=== PATIENT | female | born 1965 | race African-American/Black ===

== ENCOUNTER 2017-01-03 12:17 | Emergency (ER) | payer MEDICAID ==
[~2017-01-03] VITALS: Ht 175.3 cm; Wt 48.0 kg
[2017-01-03 12:30] VITALS: BP 156/92
[2017-01-03 14:22] LABS: CLARITY URINE CLOUDY (CLEAR); COLOR URINE YELLOW (YELLOW); GLUCOSE URINE NEGATIVE (NEGATIVE); KETONES URINE NEGATIVE (NEGATIVE); LEUKOCYTE ESTERASE URINE 2+ (NEGATIVE); NITRITE URINE NEGATIVE (NEGATIVE); OCCULT BLOOD URINE NEGATIVE (NEGATIVE); PH URINE 5.5 (4.5-8.0); PROTEIN URINE NEGATIVE (NEGATIVE); SPECIFIC GRAVITY URINE 1.023 (1.005-1.030); UROBILINOGEN URINE 0.2 E.U./dL (0.2-1.0)
[2017-01-03 14:46] LABS: SQUAMOUS EPITHELIAL CELL URINE 2+ /lpf (RARE/1+)
[2017-01-03 14:47] LABS: BACTERIA URINE TRACE
[2017-01-03 14:49] LABS: RBC URINE 0-2 /hpf (0-2); TRICHOMONAS URINE FEW
[2017-01-03 14:50] LABS: MUCUS URINE TRACE /lpf (< = 2+)
== END 2017-01-03 14:50 | disposition home or self-care (01) ==
LOC: ER 12:17
DX: S39.012A Strain of muscle, fascia and tendon of lower back, initial encounter (principal); R30.0 Dysuria; R35.0 Frequency of micturition; A59.9 Trichomoniasis, unspecified; N30.90 Cystitis, unspecified without hematuria; I10 Essential (primary) hypertension; J45.909 Unspecified asthma, uncomplicated; F17.200 Nicotine dependence, unspecified, uncomplicated; F12.10 Cannabis abuse, uncomplicated; W18.39XA Other fall on same level, initial encounter; Y93.89 Activity, other specified; Y92.89 Other specified places as the place of occurrence of the external cause; Y99.8 Other external cause status; Z88.8 Allergy status to other drugs, medicaments and biological substances
CPT/HCPCS: 81001; 99283

== ENCOUNTER 2018-07-10 08:36 | Emergency (ER) | payer MEDICAID ==
[~2018-07-10] VITALS: Ht 167.6 cm; Wt 44.0 kg
[2018-07-10 08:38] VITALS: BP 117/77
[2018-07-10] MEDS ORDERED: SODIUM CHLORIDE 0.9% 1,000 ML IV ONE (10:41)
[2018-07-10] MEDS ORDERED: IBUPROFEN 600MG TABLET PO ONE (10:45)
[2018-07-10 11:43] LABS: CLARITY URINE CLEAR (CLEAR); COLOR URINE YELLOW (YELLOW); KETONES URINE TRACE (NEGATIVE); LEUKOCYTE ESTERASE URINE TRACE (NEGATIVE); NITRITE URINE NEGATIVE (NEGATIVE); OCCULT BLOOD URINE NEGATIVE (NEGATIVE); PH URINE 5.5 (4.5-8.0); PROTEIN URINE NEGATIVE (NEGATIVE); SPECIFIC GRAVITY URINE 1.022 (1.005-1.030); UROBILINOGEN URINE 0.2 E.U./dL (0.2-1.0)
[2018-07-10 12:28] LABS: BASOPHILS % 0.9 % (0.0-2.0); EOSINOPHILS % 0.4 % (0.0-5.0); HEMATOCRIT. 42.5 % (36.0-48.0); HEMOGLOBIN. 14.3 g/dL (12.0-16.0); LYMPHOCYTES % 42.4 % (20.0-50.0); MEAN CORPUSCULAR VOLUME 89.1 fL (81.0-99.0); MEAN PLATELET VOLUME 8.3 fl (7.4-10.4); MONOCYTES % 5.2 % (2.0-8.0); NEUTROPHILS % 51.1 % (40.0-76.0); PLATELET 214 x1000/uL (130-400); RED BLOOD CELL COUNT 4.77 mill/uL (4.2-5.4); RED CELL DISTRIBUTION WIDTH 14.3 % (11.6-14.6)
[2018-07-10 12:33] LABS: CHLORIDE 107 mEq/L (98-107)
[2018-07-10 12:35] LABS: PROTHROMBIN TIME 10.2 sec (9.1-11.1)
== END 2018-07-10 13:37 | disposition home or self-care (01) ==
LOC: ER 09:38
DX: J06.9 Acute upper respiratory infection, unspecified (principal); R11.10 Vomiting, unspecified; R19.7 Diarrhea, unspecified; J45.909 Unspecified asthma, uncomplicated; E11.9 Type 2 diabetes mellitus without complications; I10 Essential (primary) hypertension; F17.200 Nicotine dependence, unspecified, uncomplicated; Z90.710 Acquired absence of both cervix and uterus; Z88.1 Allergy status to other antibiotic agents
CPT/HCPCS: 36415; 74176; 80053; 81003; 82962; 83690; 85025; 85610; 99285; J7030

== ENCOUNTER 2018-10-19 05:19 | Inpatient (IN) | payer MEDICAID ==
[~2018-10-19] VITALS: Ht 154.9 cm; Wt 44.9 kg
[~2018-10-19 05:19] MED LIST: ALBU18HF2 IH; DIVA-18 PO; ERGO2000 PO; FLUT1DIS2 IH; GABA-531 PO; HYDR12.529 PO; IBUP-2030 PO; LORA10TA7 PO; PHEN300C6 PO; PIOG30TA27 PO; SERT-112 PO; TRAM50TA3 PO; TYLENOL CODEINE PO; ZIPR40CA2 PO
[2018-10-19] MEDS ORDERED: LACTATED RINGERS 1,000 ML IV SCH (05:30)
[2018-10-19] MEDS ORDERED: GELATIN SPONGE,ABSORBABLE 12-7MM SPONGE ONE (06:45)
[2018-10-19] MEDS ORDERED: BACITRACIN 50,000 UNITS/VIAL ONE (06:46)
[2018-10-19] MEDS ORDERED: THROMBIN (BOVINE) 5000 UNITS/VIAL TOP ONE (06:46)
[2018-10-19] MEDS ORDERED: LIDOCAINE HCL/EPINEPHRINE 1%-EPI 1:100,000 20 ML VIAL ONE (06:47)
[2018-10-19] MEDS ORDERED: DICL50TA9 PO (06:52)
[2018-10-19] MEDS ORDERED: FENTANYL CITRATE/PF 50MCG/ML 2ML VIAL ONE (07:05)
[2018-10-19] MEDS ORDERED: PROPOFOL 200MG/20ML VIAL IV ONE (07:05)
[2018-10-19] MEDS ORDERED: MIDAZOLAM HCL 2 MG/2 ML VIAL ONE (07:05)
[2018-10-19] MEDS ORDERED: ROCURONIUM BROMIDE 10MG/ML VIAL 5ML IV ONE (07:05)
[2018-10-19] MEDS ORDERED: ONDANSETRON HCL 4MG/2ML INJ IV PRN ×2 (07:15→08:45)
[2018-10-19] MEDS ORDERED: NICARDIPINE 100 MG in SODIUM CHLORIDE 0.9% 60 ML IV PRN (07:15)
[2018-10-19] MEDS ORDERED: ESMOLOL HCL 10MG/ML 10ML VIAL IV ONE (07:52)
[2018-10-19] MEDS ORDERED: SUCCINYLCHOLINE CHLORIDE 200MG/10ML IV ONE (07:52)
[2018-10-19] MEDS ORDERED: HYDRALAZINE 20MG/ML VIAL ONE (07:59)
[2018-10-19] MEDS ORDERED: GLYCOPYRROLATE 0.2 MG/ML 2ML VIAL ONE (08:33)
[2018-10-19] MEDS ORDERED: NEOSTIGMINE METHYLSULFATE 1MG/ML 10 ML VIAL ONE (08:33)
[2018-10-19] MEDS ORDERED: FENTANYL CITRATE/PF 50MCG/ML 2ML VIAL IV PRN (08:45)
[2018-10-19] MEDS ORDERED: MEPERIDINE HCL/PF 25MG/ML CPJ IV PRN (08:45)
[2018-10-19] MEDS ORDERED: MORPHINE SULFATE 4 MG/ML CPJ (NOT FOR IM USE) IV PRN (08:45)
[2018-10-19] MEDS ORDERED: METOCLOPRAMIDE HCL 10MG/2ML VIAL ONE (09:41)
[2018-10-19] MEDS: HYDROMORPHONE HCL/PF 2MG/ML CPJ IV PRN ×4 (10:02→11:11)
[2018-10-19 10:33] LABS: CLARITY URINE TURBID (CLEAR); COLOR URINE YELLOW (YELLOW); KETONES URINE 1+ (NEGATIVE); LEUKOCYTE ESTERASE URINE NEGATIVE (NEGATIVE); NITRITE URINE NEGATIVE (NEGATIVE); OCCULT BLOOD URINE NEGATIVE (NEGATIVE); PROTEIN URINE 1+ (NEGATIVE); SPECIFIC GRAVITY URINE 1.037 (1.005-1.030); UROBILINOGEN URINE 0.2 E.U./dL (0.2-1.0)
[2018-10-19] MEDS ORDERED: DIPHENHYDRAMINE INJ IV PRN (11:00)
[2018-10-19] MEDS ORDERED: NALOXONE INJ IV PRN (11:00)
[2018-10-19] MEDS ORDERED: ONDANSETRON INJ IV PRN (11:00)
[2018-10-19] MEDS: HYDROMORPHONE PCA 10MG/50ML IV PRN (11:39)
[2018-10-19] MEDS ORDERED: CEFAZOLIN SODIUM 1000MG/VIAL IV SCH (14:00)
[2018-10-19 14:20] VITALS: BP 159/82
[2018-10-19 16:00] VITALS: BP 90/55
[2018-10-19] MEDS ORDERED: CLONIDINE 0.1MG TABLET PO PRN (16:45)
[2018-10-19] MEDS: CEFAZOLIN 1000MG PREMIX 50 ML IV SCH ×2 (17:13→23:32)
[2018-10-19] MEDS: DEXT 5%/LACTATED RINGERS 1,000 ML IV SCH ×2 (17:13→23:33)
[2018-10-19 20:00] VITALS: BP 153/96
[2018-10-20] VITALS: BP 112/65
[2018-10-20 04:00] VITALS: BP 114/74
[2018-10-20] MEDS: DEXT 5%/LACTATED RINGERS 1,000 ML IV SCH ×3 (05:55→21:56)
[2018-10-20 08:00] VITALS: BP 118/63
[2018-10-20] MEDS: CEFAZOLIN 1000MG PREMIX 50 ML IV SCH ×2 (08:44→16:48)
[2018-10-20] MEDS ORDERED: DEXTROSE 50% WATER 50ML SYRINGE IV PRN (11:45)
[2018-10-20 12:00] VITALS: BP 106/67
[2018-10-20] MEDS: INSULIN LISPRO 100 UNITS/ML SUBCUT SCH ×3 (12:03→21:00)
[2018-10-20] MEDS: BLOOD SUGAR DIAGNOSTIC STRIP TEST SCH ×3 (12:03→21:56)
[2018-10-20 16:00] VITALS: BP 90/54
[2018-10-20 16:29] LABS: HEMATOCRIT 34.8 % (36.0-48.0); HEMOGLOBIN 11.5 g/dL (12.0-16.0); MEAN CORPUSCULAR HEMOGLOBIN 29.3 pg (28.0-32.0); MEAN CORPUSCULAR VOLUME 88.7 fL (81.0-99.0); PLATELET 128 x1000/uL (130-400); RED BLOOD CELL COUNT 3.92 mill/uL (4.2-5.4); RED CELL DISTRIBUTION WIDTH 13.3 % (11.6-14.6)
[2018-10-20 16:47] LABS: CHLORIDE 106 mEq/L (98-107)
[2018-10-20] MEDS: LORATADINE 10MG TABLET PO SCH (16:49)
[2018-10-20] MEDS: HYDROCHLOROTHIAZIDE 12.5MG CAPSULE PO SCH (16:49)
[2018-10-20] MEDS: SERTRALINE HCL 100MG TABLET PO SCH (16:49)
[2018-10-20] MEDS: GABAPENTIN 300MG CAPSULE PO SCH (16:49)
[2018-10-20] MEDS: DIVALPROEX SODIUM 500MG ER TABLET PO SCH (16:49)
[2018-10-20] MEDS: PIOGLITAZONE 15MG TABLET PO SCH (19:16)
[2018-10-20] MEDS: ZIPRASIDONE HCL 40MG CAPSULE PO SCH (19:16)
[2018-10-20 20:00] VITALS: BP 99/53
[2018-10-20] MEDS: PHENYTOIN SODIUM EXTENDED 100MG CAPSULE PO SCH (21:56)
[2018-10-21] VITALS: BP 105/66
[2018-10-21] MEDS: HYDROMORPHONE PCA 10MG/50ML IV PRN (02:00)
[2018-10-21] MEDS: CEFAZOLIN 1000MG PREMIX 50 ML IV SCH ×3 (02:04→17:26)
[2018-10-21 04:00] VITALS: BP 95/59
[2018-10-21 05:50] LABS: BASOPHILS % 0.2 % (0.0-2.0); HEMATOCRIT. 33.3 % (36.0-48.0); HEMOGLOBIN. 11.1 g/dL (12.0-16.0); LYMPHOCYTES % 10.1 % (20.0-50.0); MEAN CORPUSCULAR HEMOGLOBIN 29.5 pg (28.0-32.0); MEAN CORPUSCULAR VOLUME 88.5 fL (81.0-99.0); MEAN PLATELET VOLUME 9.3 fl (7.4-10.4); MONOCYTES % 9.4 % (2.0-8.0); NEUTROPHILS % 80.3 % (40.0-76.0); PLATELET 114 x1000/uL (130-400); RED BLOOD CELL COUNT 3.76 mill/uL (4.2-5.4); RED CELL DISTRIBUTION WIDTH 13.5 % (11.6-14.6)
[2018-10-21] MEDS: BLOOD SUGAR DIAGNOSTIC STRIP TEST SCH ×4 (06:12→21:17)
[2018-10-21] MEDS: DEXT 5%/LACTATED RINGERS 1,000 ML IV SCH (06:12)
[2018-10-21] MEDS: INSULIN LISPRO 100 UNITS/ML SUBCUT SCH ×4 (06:26→21:00)
[2018-10-21 06:53] LABS: CHLORIDE 106 mEq/L (98-107)
[2018-10-21] MEDS: PIOGLITAZONE 15MG TABLET PO SCH (10:03)
[2018-10-21] MEDS: LORATADINE 10MG TABLET PO SCH (10:03)
[2018-10-21] MEDS: DIVALPROEX SODIUM 500MG ER TABLET PO SCH (10:03)
[2018-10-21] MEDS: SERTRALINE HCL 100MG TABLET PO SCH (10:03)
[2018-10-21] MEDS: HYDROCHLOROTHIAZIDE 12.5MG CAPSULE PO SCH (10:03)
[2018-10-21] MEDS: GABAPENTIN 300MG CAPSULE PO SCH ×2 (10:04→17:26)
[2018-10-21] MEDS: ZIPRASIDONE HCL 40MG CAPSULE PO SCH ×2 (10:04→17:26)
[2018-10-21 12:00] VITALS: BP 130/87
[2018-10-21 16:00] VITALS: BP 100/71
[2018-10-21] MEDS ORDERED: POTASSIUM CHLORIDE 20MEQ TABLET SR PO NR (16:30)
[2018-10-21 20:00] VITALS: BP 87/52
[2018-10-21] MEDS ORDERED: INFLUENZA VIRUS VACCINE(AFLURIA) 0.5ML SYR IM ONE (21:00)
[2018-10-21] MEDS ORDERED: SODIUM CHLORIDE 0.9% 500 ML IV ONE ×2 (21:00)
[2018-10-21] MEDS: PIPERACILLIN/TAZ 3.375G PREMIX 50 ML IV SCH (21:00)
[2018-10-21] MEDS: SODIUM CHLORIDE 0.9% 1,000 ML IV SCH (21:12)
[2018-10-21] MEDS: PHENYTOIN SODIUM EXTENDED 100MG CAPSULE PO SCH (21:14)
[2018-10-21 22:53] LABS: PHOSPHORUS 2.4 mg/dL (2.5-4.9)
[2018-10-22] VITALS: BP 103/62
[2018-10-22] MEDS: PIPERACILLIN/TAZ 3.375G PREMIX 50 ML IV SCH ×3 (02:45→16:01)
[2018-10-22 04:00] VITALS: BP 97/56
[2018-10-22] MEDS: BLOOD SUGAR DIAGNOSTIC STRIP TEST SCH ×4 (06:29→21:13)
[2018-10-22 06:52] LABS: BASOPHILS % 0.2 % (0.0-2.0); EOSINOPHILS % 0.3 % (0.0-5.0); HEMATOCRIT. 31.1 % (36.0-48.0); HEMOGLOBIN. 10.4 g/dL (12.0-16.0); LYMPHOCYTES % 18.9 % (20.0-50.0); MEAN CORPUSCULAR HEMOGLOBIN 29.6 pg (28.0-32.0); MEAN CORPUSCULAR VOLUME 88.6 fL (81.0-99.0); MEAN PLATELET VOLUME 9.6 fl (7.4-10.4); MONOCYTES % 9.5 % (2.0-8.0); NEUTROPHILS % 71.1 % (40.0-76.0); PLATELET 130 x1000/uL (130-400); RED CELL DISTRIBUTION WIDTH 13.2 % (11.6-14.6)
[2018-10-22] MEDS: INSULIN LISPRO 100 UNITS/ML SUBCUT SCH ×4 (07:50→21:00)
[2018-10-22 08:00] VITALS: BP 160/116
[2018-10-22 08:11] LABS: CHLORIDE 111 mEq/L (98-107)
[2018-10-22] MEDS: PIOGLITAZONE 15MG TABLET PO SCH (08:22)
[2018-10-22] MEDS: GABAPENTIN 300MG CAPSULE PO SCH ×2 (08:23→18:00)
[2018-10-22] MEDS: ZIPRASIDONE HCL 40MG CAPSULE PO SCH ×2 (08:23→18:01)
[2018-10-22] MEDS: DIVALPROEX SODIUM 500MG ER TABLET PO SCH (08:23)
[2018-10-22] MEDS: SERTRALINE HCL 100MG TABLET PO SCH (08:23)
[2018-10-22] MEDS: LORATADINE 10MG TABLET PO SCH (08:23)
[2018-10-22] MEDS: HYDROCHLOROTHIAZIDE 12.5MG CAPSULE PO SCH (08:57)
[2018-10-22] MEDS ORDERED: INFLUENZA VIRUS VACCINE(AFLURIA) 0.5ML SYR IM ONE (09:00)
[2018-10-22 16:00] VITALS: BP 100/58
[2018-10-22] MEDS: SODIUM CHLORIDE 0.9% 1,000 ML IV SCH (16:00)
[2018-10-22] MEDS: DOCUSATE SODIUM 100MG CAPSULE PO SCH (18:00)
[2018-10-22 20:00] VITALS: BP 90/55
[2018-10-22] MEDS: LACTULOSE 20G/30ML UDC PO SCH (21:05)
[2018-10-22] MEDS: POLYETHYLENE GLYCOL 3350 (17GM) 1 DOSE PACK PO SCH (21:05)
[2018-10-22] MEDS: PHENYTOIN SODIUM EXTENDED 100MG CAPSULE PO SCH (21:06)
[2018-10-23] VITALS: BP 96/61
[2018-10-23 04:00] VITALS: BP 102/66
[2018-10-23] MEDS: HYDROCODONE/ACETAMINOPHEN 5/325MG TABLET PO PRN ×2 (06:55→13:02)
[2018-10-23] MEDS: INSULIN LISPRO 100 UNITS/ML SUBCUT SCH ×4 (07:16→20:48)
[2018-10-23] MEDS: BLOOD SUGAR DIAGNOSTIC STRIP TEST SCH ×4 (07:16→20:48)
[2018-10-23 08:00] VITALS: BP 104/63
[2018-10-23 08:02] LABS: CHLORIDE 106 mEq/L (98-107)
[2018-10-23 08:07] LABS: BASOPHILS % 0.2 % (0.0-2.0); EOSINOPHILS % 0.7 % (0.0-5.0); HEMOGLOBIN. 10.4 g/dL (12.0-16.0); LYMPHOCYTES % 26.1 % (20.0-50.0); MEAN CORPUSCULAR HEMOGLOBIN 29.7 pg (28.0-32.0); MEAN CORPUSCULAR VOLUME 88.8 fL (81.0-99.0); MEAN PLATELET VOLUME 9.1 fl (7.4-10.4); MONOCYTES % 13.1 % (2.0-8.0); NEUTROPHILS % 59.9 % (40.0-76.0); PLATELET 145 x1000/uL (130-400); RED BLOOD CELL COUNT 3.49 mill/uL (4.2-5.4); RED CELL DISTRIBUTION WIDTH 13.3 % (11.6-14.6)
[2018-10-23] MEDS: GABAPENTIN 300MG CAPSULE PO SCH ×2 (08:57→16:55)
[2018-10-23] MEDS: DIVALPROEX SODIUM 500MG ER TABLET PO SCH (08:57)
[2018-10-23] MEDS: LACTULOSE 20G/30ML UDC PO SCH ×4 (08:57→20:42)
[2018-10-23] MEDS: LORATADINE 10MG TABLET PO SCH (08:58)
[2018-10-23] MEDS: HYDROCHLOROTHIAZIDE 12.5MG CAPSULE PO SCH (08:58)
[2018-10-23] MEDS: DOCUSATE SODIUM 100MG CAPSULE PO SCH ×2 (08:58→16:55)
[2018-10-23] MEDS: SERTRALINE HCL 100MG TABLET PO SCH (08:58)
[2018-10-23] MEDS: ZIPRASIDONE HCL 40MG CAPSULE PO SCH ×2 (08:58→16:55)
[2018-10-23] MEDS ORDERED: PNEUMOCOCCAL 23-VAL P-SAC VAC 0.5 ML IM ONE (09:00)
[2018-10-23] MEDS: PIOGLITAZONE 15MG TABLET PO SCH (09:07)
[2018-10-23 12:00] VITALS: BP 110/70
[2018-10-23] MEDS ORDERED: LACTULOSE 20G/30ML UDC PO STA (12:57)
[2018-10-23] MEDS ORDERED: NA PHOS,M-B/NA PHOS,DI-BA ENEMA 118ML PR PRN (13:00)
[2018-10-23] MEDS: SODIUM CHLORIDE 0.9% 1,000 ML IV SCH (13:08)
[2018-10-23] MEDS ORDERED: LACTULOSE 20G/30ML UDC PO SCH (13:40)
[2018-10-23 16:00] VITALS: BP 112/74
[2018-10-23] MEDS: CEFTRIAXONE 1 G PREMIX 50 ML IV SCH (16:55)
[2018-10-23 20:00] VITALS: BP 99/70
[2018-10-23] MEDS: PHENYTOIN SODIUM EXTENDED 100MG CAPSULE PO SCH (20:42)
[2018-10-23] MEDS: POLYETHYLENE GLYCOL 3350 (17GM) 1 DOSE PACK PO SCH (20:43)
[2018-10-24] VITALS: BP 118/68
[2018-10-24] MEDS: SODIUM CHLORIDE 0.9% 1,000 ML IV SCH ×2 (03:27→16:26)
[2018-10-24 03:41] LABS: CLARITY URINE CLEAR (CLEAR); COLOR URINE YELLOW (YELLOW); KETONES URINE NEGATIVE (NEGATIVE); LEUKOCYTE ESTERASE URINE NEGATIVE (NEGATIVE); NITRITE URINE NEGATIVE (NEGATIVE); OCCULT BLOOD URINE NEGATIVE (NEGATIVE); PROTEIN URINE NEGATIVE (NEGATIVE); SPECIFIC GRAVITY URINE 1.011 (1.005-1.030)
[2018-10-24 04:00] VITALS: BP 101/53
[2018-10-24] MEDS: HYDROCODONE/ACETAMINOPHEN 5/325MG TABLET PO PRN ×2 (05:10→22:43)
[2018-10-24] MEDS: BLOOD SUGAR DIAGNOSTIC STRIP TEST SCH ×4 (07:20→20:31)
[2018-10-24 07:36] LABS: BASOPHILS % 0.4 % (0.0-2.0); EOSINOPHILS % 2.2 % (0.0-5.0); HEMATOCRIT. 32.1 % (36.0-48.0); HEMOGLOBIN. 10.8 g/dL (12.0-16.0); LYMPHOCYTES % 27.2 % (20.0-50.0); MEAN CORPUSCULAR HEMOGLOBIN 29.7 pg (28.0-32.0); MEAN CORPUSCULAR VOLUME 88.5 fL (81.0-99.0); MONOCYTES % 12.5 % (2.0-8.0); NEUTROPHILS % 57.7 % (40.0-76.0); PLATELET 155 x1000/uL (130-400); RED BLOOD CELL COUNT 3.63 mill/uL (4.2-5.4); RED CELL DISTRIBUTION WIDTH 13.2 % (11.6-14.6)
[2018-10-24] MEDS: INSULIN LISPRO 100 UNITS/ML SUBCUT SCH ×4 (07:50→20:37)
[2018-10-24 08:00] VITALS: BP 110/65
[2018-10-24 08:19] LABS: CHLORIDE 106 mEq/L (98-107)
[2018-10-24] MEDS: SERTRALINE HCL 100MG TABLET PO SCH (08:42)
[2018-10-24] MEDS: DIVALPROEX SODIUM 500MG ER TABLET PO SCH (08:42)
[2018-10-24] MEDS: LACTULOSE 20G/30ML UDC PO SCH (08:42)
[2018-10-24] MEDS: GABAPENTIN 300MG CAPSULE PO SCH ×2 (08:43→16:19)
[2018-10-24] MEDS: ZIPRASIDONE HCL 40MG CAPSULE PO SCH (08:43)
[2018-10-24] MEDS: DOCUSATE SODIUM 100MG CAPSULE PO SCH (08:43)
[2018-10-24] MEDS: LORATADINE 10MG TABLET PO SCH (08:43)
[2018-10-24] MEDS: PIOGLITAZONE 15MG TABLET PO SCH (08:43)
[2018-10-24] MEDS: HYDROCHLOROTHIAZIDE 12.5MG CAPSULE PO SCH (09:00)
[2018-10-24 12:00] VITALS: BP_SYST 108; BP_SYST 113; BP_DIAS 71; BP_DIAS 74
[2018-10-24 16:00] VITALS: BP 103/67
[2018-10-24] MEDS: CEFTRIAXONE 1 G PREMIX 50 ML IV SCH (16:19)
[2018-10-24] MEDS: ZIPRASIDONE HCL 20MG CAPSULE PO SCH (16:20)
[2018-10-24 20:00] VITALS: BP 130/74
[2018-10-24] MEDS: PHENYTOIN SODIUM EXTENDED 100MG CAPSULE PO SCH (20:31)
[2018-10-25] VITALS: BP 114/72
[2018-10-25 04:00] VITALS: BP 124/72
[2018-10-25] MEDS: SODIUM CHLORIDE 0.9% 1,000 ML IV SCH (04:19)
[2018-10-25] MEDS: HYDROCODONE/ACETAMINOPHEN 5/325MG TABLET PO PRN (04:20)
[2018-10-25] MEDS: INSULIN LISPRO 100 UNITS/ML SUBCUT SCH ×2 (06:49→12:36)
[2018-10-25] MEDS: BLOOD SUGAR DIAGNOSTIC STRIP TEST SCH ×2 (06:49→12:35)
[2018-10-25 08:00] VITALS: BP 118/68
[2018-10-25] MEDS: SERTRALINE HCL 100MG TABLET PO SCH (08:20)
[2018-10-25] MEDS: GABAPENTIN 300MG CAPSULE PO SCH (08:20)
[2018-10-25] MEDS: DIVALPROEX SODIUM 500MG ER TABLET PO SCH (08:21)
[2018-10-25] MEDS: LORATADINE 10MG TABLET PO SCH (08:21)
[2018-10-25] MEDS: ZIPRASIDONE HCL 20MG CAPSULE PO SCH (08:21)
[2018-10-25] MEDS: PIOGLITAZONE 15MG TABLET PO SCH (08:21)
[2018-10-25] MEDS: HYDROCHLOROTHIAZIDE 12.5MG CAPSULE PO SCH (08:59)
[2018-10-25 12:00] VITALS: BP 90/51
[2018-10-25 15:09] VITALS: BP 120/68
== END 2018-10-25 15:40 | disposition home or self-care (01) | DRG 304 ==
LOC: OR 05:19 → 6EST 05:20
PROVIDERS: ADMIT Neurological Surgery; ATTEND Internal Medicine
PROC: 0SG307J Fusion of Lumbosacral Joint with Autologous Tissue Substitute, Posterior Approach, Anterior Column, Open Approach (ICD-10-PCS; principal; 2018-10-19)
PROC: 0ST40ZZ Resection of Lumbosacral Disc, Open Approach (ICD-10-PCS; 2018-10-19)
PROC: 4A11X4G Monitoring of Peripheral Nervous Electrical Activity, Intraoperative, External Approach (ICD-10-PCS; 2018-10-19)
PROC: 01NB0ZZ Release Lumbar Nerve, Open Approach (ICD-10-PCS; 2018-10-19)
PROC: 0SG30A0 Fusion of Lumbosacral Joint with Interbody Fusion Device, Anterior Approach, Anterior Column, Open Approach (ICD-10-PCS; 2018-10-19)
PROC: BR1B1ZZ Fluoroscopy of Lumbosacral Joint using Low Osmolar Contrast (ICD-10-PCS; 2018-10-19)
DX: M48.061 Spinal stenosis, lumbar region without neurogenic claudication (principal); J90 Pleural effusion, not elsewhere classified; G82.20 Paraplegia, unspecified; F20.9 Schizophrenia, unspecified; E11.9 Type 2 diabetes mellitus without complications; D64.9 Anemia, unspecified; F12.90 Cannabis use, unspecified, uncomplicated; F17.200 Nicotine dependence, unspecified, uncomplicated; M47.817 Spondylosis without myelopathy or radiculopathy, lumbosacral region; M48.07 Spinal stenosis, lumbosacral region; M47.26 Other spondylosis with radiculopathy, lumbar region; M43.17 Spondylolisthesis, lumbosacral region; J45.909 Unspecified asthma, uncomplicated; G40.909 Epilepsy, unspecified, not intractable, without status epilepticus; G89.29 Other chronic pain; I10 Essential (primary) hypertension; K59.00 Constipation, unspecified; R26.9 Unspecified abnormalities of gait and mobility; R50.82 Postprocedural fever; Z82.49 Family history of ischemic heart disease and other diseases of the circulatory system; Z83.3 Family history of diabetes mellitus; Z90.710 Acquired absence of both cervix and uterus; Z88.0 Allergy status to penicillin
CPT/HCPCS: 36415; 71045; 72100; 80048; 80061; 80185; 82962; 83036; 83605; 83735; 84100; 84145; 84443; 85027; 86850; 86900; 88304; 88311; 90686; 90732; 95863; 95925; 95926; 97116; 97162; 97166; 97530; 97535; 97760; C1713; C1893; J0330; J0360; J0690; J0696; J1170; J1815; J2250; J2405; J2543; J2704; J2710; J2765; J3010; J3490; J7030; J7040; J7120; J7121

== ENCOUNTER 2019-02-02 10:44 | Emergency (ER) | payer MEDICAID ==
[~2019-02-02] VITALS: Ht 154.9 cm; Wt 46.0 kg
[~2019-02-02 10:44] MED LIST changes: +DICL50TA9 PO
[2019-02-02 16:45] VITALS: BP 124/84
== END 2019-02-02 16:47 | disposition home or self-care (01) ==
LOC: ER 10:44
DX: S82.831A Other fracture of upper and lower end of right fibula, initial encounter for closed fracture (principal); J45.909 Unspecified asthma, uncomplicated; E11.9 Type 2 diabetes mellitus without complications; I10 Essential (primary) hypertension; M32.9 Systemic lupus erythematosus, unspecified; Z90.710 Acquired absence of both cervix and uterus; Z88.1 Allergy status to other antibiotic agents; Z79.899 Other long term (current) drug therapy; W18.39XA Other fall on same level, initial encounter; Y93.89 Activity, other specified; Y92.89 Other specified places as the place of occurrence of the external cause; Y99.8 Other external cause status
CPT/HCPCS: 29515; 73610; 73630; 99283

== ENCOUNTER 2019-03-01 12:09 | Emergency (ER) | payer MEDICAID ==
[~2019-03-01] VITALS: Ht 154.9 cm; Wt 46.0 kg
[2019-03-01 13:29] VITALS: BP 148/101
== END 2019-03-01 14:51 | disposition home or self-care (01) ==
LOC: ER 12:09
DX: H60.92 Unspecified otitis externa, left ear (principal); J02.9 Acute pharyngitis, unspecified; I10 Essential (primary) hypertension; E11.9 Type 2 diabetes mellitus without complications; F12.90 Cannabis use, unspecified, uncomplicated
CPT/HCPCS: 99282; 99283

== ENCOUNTER 2019-07-05 10:34 | Emergency (ER) | payer MEDICAID ==
[~2019-07-05] VITALS: Ht 154.9 cm; Wt 50.0 kg
[2019-07-05] MEDS ORDERED: HYDROCODONE/ACETAMINOPHEN 5/325MG TABLET PO ONE (11:15)
[2019-07-05 11:16] VITALS: BP 128/86
== END 2019-07-05 15:00 | disposition home or self-care (01) ==
LOC: ER 14:30
DX: M25.552 Pain in left hip (principal); E11.9 Type 2 diabetes mellitus without complications; M32.9 Systemic lupus erythematosus, unspecified; J45.909 Unspecified asthma, uncomplicated; F17.210 Nicotine dependence, cigarettes, uncomplicated; F12.10 Cannabis abuse, uncomplicated; Z98.1 Arthrodesis status; Z90.710 Acquired absence of both cervix and uterus; Z88.1 Allergy status to other antibiotic agents
CPT/HCPCS: 99283

== ENCOUNTER 2019-09-17 10:43 | Emergency (ER) | payer MEDICAID, OTHER ==
[~2019-09-17] VITALS: Ht 154.9 cm; Wt 46.5 kg
[~2019-09-17 10:43] MED LIST changes: -PIOG30TA27 PO; +PIOG30TA71 PO
[2019-09-17] MEDS ORDERED: HYDR-3281 PO (11:39)
[2019-09-17] MEDS ORDERED: IBUPROFEN 600MG TABLET PO ONE (15:15)
[2019-09-17] MEDS ORDERED: IPRATROPIUM BROMIDE (0.02%) 0.5MG/2.5ML NEB HHN STA (15:21)
[2019-09-17] MEDS ORDERED: ALBUTEROL (0.083%) 2.5MG/3ML NEB HHN STA (15:21)
[2019-09-17] MEDS ORDERED: IPRATROPIUM BROMIDE (0.02%) 0.5MG/2.5ML NEB ONE (16:07)
[2019-09-17] MEDS ORDERED: ALBUTEROL (0.083%) 2.5MG/3ML NEB ONE (16:07)
[2019-09-17 17:00] VITALS: BP 132/86
== END 2019-09-17 17:01 | disposition home or self-care (01) ==
LOC: ER 10:43
DX: J02.9 Acute pharyngitis, unspecified (principal); J45.901 Unspecified asthma with (acute) exacerbation; F17.290 Nicotine dependence, other tobacco product, uncomplicated; F12.10 Cannabis abuse, uncomplicated; E11.9 Type 2 diabetes mellitus without complications; F20.9 Schizophrenia, unspecified; Z90.710 Acquired absence of both cervix and uterus; Z79.899 Other long term (current) drug therapy; Z88.1 Allergy status to other antibiotic agents
CPT/HCPCS: 71045; 87804; 94640; 99284; J7611; Z7610